=== PATIENT | male | born 1935 | race Two or more races ===

== ENCOUNTER 2016-06-06 19:30 | Emergency (ER) | payer MEDICARE, OTHER, MEDICAID ==
[2016-06-06 20:55] LABS: Hematocrit 37 % (42-52); Hemoglobin 12.2 g/dl (14.0-18.0); Mean Corpuscular HGB Conc 33 g/dl (31-36); Mean Corpuscular Hemoglobin 29 pg (27-31); Mean Corpuscular Volume 87 fL (80-94); Mean Platelet Volume 10 um3 (7.4-10.4); Red Blood Count 4.25 10^6/ul (4.0-5.4); Red Cell Distribution Width 14 % (10.5-15); White Blood Count 12.6 10^3/ul (3.5-10.8)
[2016-06-06 21:10] LABS: ALT 17 U/L (7-52); AST 12 U/L (13-39); Alkaline Phosphatase 57 U/L (34-104); Anion Gap 7 mmol/L (2-11); BUN/Creatinine Ratio 25.7 (8-20); Blood Urea Nitrogen 35 mg/dL (6-24); CO2 Carbon Dioxide 28 mmol/L (22-32); Calcium 9.5 mg/dL (8.6-10.3); Chloride 103 mmol/L (101-111); EGFR African American 65.2 (>60); EGFR Non-African American 50.7 (>60); Globulin 2.7 g/dL (2-4); Glucose 185 mg/dL (70-100); Potassium 4.6 mmol/L (3.5-5.0); Sodium 138 mmol/L (133-145); Total Protein 6.7 g/dL (6.4-8.9)
[2016-06-06 21:28] LABS: Alcohol < 10 mg/dL (<10); Salicylate < 2.50 mg/dL (<30)
[2016-06-06 21:38] LABS: TSH (Thyroid Stimulating Horm) 3.15 mcIU/mL (0.34-5.60)
[2016-06-07 03:27] LABS: Urine Bilirubin Negative (Negative); Urine Glucose Negative (Negative); Urine Nitrite Negative (Negative)
[2016-06-07 03:49] LABS: Benzodiazepine Urine Screen None Detected (None Detect)
[2016-06-07 05:32] VITALS: BP 141/61
--- NOTE | 2016-06-07 06:15 | ED ---
Enma Livingston Alok, scribed for AnilMontez on 06/06/16 at 2040 . Psychiatric Complaint - HPI Summary HPI Summary: 80 y/o male presents to the ED for mental evaluation after being caught fondling a fellow female resident at [facility]. Pt now states that "she wanted it ". Pt denies pain and appears alert and confused. Pt denies SI/HI. - History Of Current Complaint Chief Complaint: EDMentalHealth Time Seen by Provider: 06/06/16 19:58 Hx Obtained From: Patient Associated Signs And Symptoms: Positive: Confused Has Suicidal: Denies: Thoughts Has Homicidal: Denies: Thoughts - Allergies/Home Medications Allergies/Adverse Reactions: Allergies Allergy/AdvReac Type Severity Reaction Status Date / Time No Known Allergies Allergy Verified 04/16/15 08:27 PMH/Surg Hx/FS Hx/Imm Hx Endocrine/Hematology History: Reports: Hx Diabetes - DM II Denies: Hx Anticoagulant Therapy, Hx Blood Disorders, Hx Blood Transfusions, Hx Bone Marrow Disease, Hx Systemic Lupus Erythematosus, Hx Sickle Cell Disease , Hx Thyroid Disease, Hx Anemia, Hx Unexplained Bleeding, Other Endocrine/ Hematological Disorders Cardiovascular History: Reports: Hx Hypercholesterolemia, Hx Hypertension Denies: Hx Aneurysm, Hx Angina, Hx Angioplasty, Hx Auto Implanted Cardiovert Defib, Hx Cardiac Arrest, Hx Cardiomegaly, Hx Congenital Heart Disease, Hx Congestive Heart Failure, Hx Coronary Artery Disease, Hx Deep Vein Thrombosis, Hx Embolism, Hx Hypotension, Hx Pacemaker/ICD, Hx Peripheral Vascular Disease, Hx Rheumatic Fever, Hx Syncope, Hx Valvular Heart Disease, Other Cardiovascular Problems/Disorders Respiratory History: Reports: Hx Asthma Denies: Hx Chronic Bronchitis, Hx Chronic Obstructive Pulmonary Disease (COPD ), Hx Cystic Fibrosis, Hx Lung Cancer, Hx Pleural Effusion, Hx Pneumonia, Hx Pulmonary Edema, Hx Pulmonary Embolism, Hx Seasonal Allergies, Hx Sleep Apnea, Other Respiratory Problems/Disorders History: Reports: Hx Benign Prostatic Hyperplasia, Hx Chronic Renal Failure - Chronic renal insufficiency Denies: Hx Acute Renal Failure, Hx Dialysis, Hx Kidney Infection, Hx Kidney Stones, Hx Renal Disease, Other Problems/Disorders Sensory History: Reports: Other Sensory Impairments - Right eye closed, 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 Denies: Hx Cataracts, Hx Contacts or Glasses, Hx Eye Injury, Hx Glaucoma, Hx Legally Blind, Hx Macular Degeneration, Hx Vision Problem, Hx Deafness, Hx Hearing Aid, Hx Hearing Problem Opthamlomology History: Reports: Other Sensory Impairments - Right eye closed, 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 Denies: Hx Cataracts, Hx Contacts or Glasses, Hx Eye Injury, Hx Glaucoma, Hx Legally Blind, Hx Macular Degeneration, Hx Vision Problem Neurological History: Reports: Hx Dementia - possible, Hx Nerve Disease - bells palsey x2, Other Neuro Impairments/Disorders - hydrocephalus Denies: Hx Developmental Delay, Hx Headaches, Hx Migraine, Hx Seizures, Hx Spinal Cord Injury, Hx Transient Ischemic Attacks (TIA) Psychiatric History: Denies: Hx Panic Disorder - Surgical History Surgery Procedure, Year, and Place: CLEFT PALLETE Hx Anesthesia Reactions: No Infectious Disease History: Yes Infectious Disease History: Denies: Hx Tuberculosis, Traveled Outside the [place] in Last 30 Days - Family History Known Family History: Positive: Other - M - arthritis, dementia, F - of injuries from war - Social History Occupation: Retired Lives: At [facility] Alcohol Use: None Hx Substance Use: No Substance Use Type: Reports: None Hx Tobacco Use: Yes Smoking Status (MU): Former Smoker Type: Cigars Have You Smoked in the Last Year: No Review of Systems Negative: Fever Positive: Other - Confused All Other Systems Reviewed And Are Negative: Yes Physical Exam Triage Information Reviewed: Yes Vital Signs On Initial Exam: Initial Vitals Temp Pulse Resp BP Pulse Ox 99.3 F 72 20 161/48 95 06/06/16 19:41 06/06/16 19:41 06/06/16 19:41 06/06/16 19:41 06/06/16 19:41 Vital Signs Reviewed: Yes Appearance: Positive: Well-Appearing, No Pain Distress Skin: Positive: Warm, Skin Color Reflects Adequate Perfusion, Dry Head/Face: Positive: Normal Head/Face Inspection Eyes: Positive: EOMI, ALLA ENT: Positive: Normal ENT inspection Neck: Positive: Supple, Nontender Respiratory/Lung Sounds: Positive: Clear to Auscultation, Breath Sounds Present Cardiovascular: Positive: RRR, Pulses are Symmetrical in both Upper and Lower Extremities Abdomen Description: Positive: Nontender, Soft Bowel Sounds: Positive: Present Musculoskeletal: Positive: Normal, Strength/ROM Intact Neurological: Positive: Other - Alert and Confused Diagnostics - Vital Signs Vital Signs Temp Pulse Resp BP Pulse Ox 06/06/16 19:41 99.3 F 72 20 161/48 95 - Laboratory Result Diagrams: 06/06/16 20:46 06/06/16 20:46 Lab Statement: Any lab studies that have been ordered have been reviewed, and results considered in the medical decision making process. Course/Dx - Differential Dx/Clinical Impression Provider Diagnosis: Dementia Discharge - Discharge Plan Condition: Stable Disposition: HOME Patient Education Materials: Dementia (ED) Additional Instructions: Please Follow up with your primary care provider in the next 3 days The documentation as recorded by the Enma moody Alok accurately reflects the service I personally performed and the decisions made by Anil kate Emmanuel.
== END 2016-06-07 05:31 | disposition home or self-care (01) ==
LOC: ED 19:30
DX: F03.90 Unspecified dementia, unspecified severity, without behavioral disturbance, psychotic disturbance, mood disturbance, and anxiety (principal); R41.0 Disorientation, unspecified; Z87.891 Personal history of nicotine dependence
CPT/HCPCS: 36415; 80053; 80307; 80320; 80329; 81003; 84443; 85025; 99285; G0480

== ENCOUNTER 2017-09-14 00:45 | Emergency (ER) | payer MEDICARE, OTHER, MEDICAID ==
[2017-09-14 01:36] LABS: ABS Basophils 0.1 10^3/ul (0-0.2); ABS Eosinophils 0.2 10^3/ul (0-0.6); ABS Lymphocytes 1.4 10^3/ul (1.0-4.8); ABS Neutrophils 10.8 10^3/ul (1.5-7.7); ABS Nucleated RBC 0 10^3/ul; Eosinophil % 1.3 % (0-6); Hematocrit 33 % (42-52); Hemoglobin 10.8 g/dl (14.0-18.0); Lymphocyte % 10.2 % (25-47); Mean Corpuscular HGB Conc 32 g/dl (31-36); Mean Corpuscular Hemoglobin 28 pg (27-31); Mean Corpuscular Volume 87 fL (80-94); Mean Platelet Volume 9.5 um3 (7.4-10.4); Nucleated Red Blood Cells % 0; Platelet Count 286 10^3/ul (150-450); Red Blood Count 3.86 10^6/ul (4.00-5.40); Red Cell Distribution Width 14 % (10.5-15); White Blood Count 13.4 10^3/ul (3.5-10.8)
[2017-09-14 01:53] LABS: EGFR Non-African American 31.7 (>60)
--- NOTE | 2017-09-14 02:04 | ED ---
Complex/Multi-Sys Presentation - HPI Summary HPI Summary: This is scribe Bhaskar Payton documenting for attending Regino Johnson MD. LEVEL 5 CAVEAT: Patient not speaking. This patient is a 81 year old M BIBA to [facility] with a chief complaint of hypoglycemia since [employer]. [facility]. His blood sugar was 44 on the scene. An amp of D50 was administered and the blood sugar tim to 243. Patient recalls nothing. Patient denies abdominal pain. His family visited him this afternoon he didnt say anything. They thought he was taking a nap, which was not unusual. Per the family, the patient does not remember if he ate lunch or not, but he did eat dinner. Family observes that he is having unusually difficult time breathing and has an unusual cough. When they visited 4-5 days ago, he was responsive and talking normally. I, Dr. Johnson, personally performed the services described in this documentation as scribed in my presence and it is both accurate and complete. - History Of Current Complaint Time Seen by Provider: 09/14/17 00:56 Hx Obtained From: Family/Client Manager Hx From Patient Unobtainable Due To: Other - Patient not speaking. Onset/Duration: Sudden Onset, Resolved Timing: Constant Severity Currently: None Severity Initially: Mild Associated Signs And Symptoms: Positive: Decreased Responsiveness, Cough, Other - Unusually difficult time breathing. Negative: Abdominal Pain - Allergies/Home Medications Allergies/Adverse Reactions: Allergies Allergy/AdvReac Type Severity Reaction Status Date / Time No Known Allergies Allergy Verified 04/16/15 08:27 PMH/Surg Hx/FS Hx/Imm Hx Endocrine/Hematology History: Reports: Hx Diabetes - DM II Denies: Hx Anticoagulant Therapy, Hx Blood Disorders, Hx Blood Transfusions, Hx Bone Marrow Disease, Hx Systemic Lupus Erythematosus, Hx Sickle Cell Disease , Hx Thyroid Disease, Hx Anemia, Hx Unexplained Bleeding, Other Endocrine/ Hematological Disorders Cardiovascular History: Reports: Hx Hypercholesterolemia, Hx Hypertension Denies: Hx Aneurysm, Hx Angina, Hx Angioplasty, Hx Auto Implanted Cardiovert Defib, Hx Cardiac Arrest, Hx Cardiomegaly, Hx Congenital Heart Disease, Hx Congestive Heart Failure, Hx Coronary Artery Disease, Hx Deep Vein Thrombosis, Hx Embolism, Hx Hypotension, Hx Pacemaker/ICD, Hx Peripheral Vascular Disease, Hx Rheumatic Fever, Hx Syncope, Hx Valvular Heart Disease, Other Cardiovascular Problems/Disorders Respiratory History: Reports: Hx Asthma Denies: Hx Chronic Bronchitis, Hx Chronic Obstructive Pulmonary Disease (COPD ), Hx Cystic Fibrosis, Hx Lung Cancer, Hx Pleural Effusion, Hx Pneumonia, Hx Pulmonary Edema, Hx Pulmonary Embolism, Hx Seasonal Allergies, Hx Sleep Apnea, Other Respiratory Problems/Disorders History: Reports: Hx Benign Prostatic Hyperplasia, Hx Chronic Renal Failure - Chronic renal insufficiency Denies: Hx Acute Renal Failure, Hx Dialysis, Hx Kidney Infection, Hx Kidney Stones, Hx Renal Disease, Other Problems/Disorders Sensory History: Reports: Other Sensory Impairments - Right eye closed, 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 Denies: Hx Cataracts, Hx Contacts or Glasses, Hx Eye Injury, Hx Glaucoma, Hx Legally Blind, Hx Macular Degeneration, Hx Vision Problem, Hx Deafness, Hx Hearing Aid, Hx Hearing Problem Opthamlomology History: Reports: Other Sensory Impairments - Right eye closed, 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 Denies: Hx Cataracts, Hx Contacts or Glasses, Hx Eye Injury, Hx Glaucoma, Hx Legally Blind, Hx Macular Degeneration, Hx Vision Problem Neurological History: Reports: Hx Dementia - possible, Hx Nerve Disease - bells palsey x2, Other Neuro Impairments/Disorders - hydrocephalus Denies: Hx Developmental Delay, Hx Headaches, Hx Migraine, Hx Seizures, Hx Spinal Cord Injury, Hx Transient Ischemic Attacks (TIA) Psychiatric History: Denies: Hx Panic Disorder - Surgical History Surgery Procedure, Year, and Place: CLEFT PALLETE Hx Anesthesia Reactions: No Infectious Disease History: No Infectious Disease History: Denies: Hx Tuberculosis, Traveled Outside the in Last 30 Days - Family History Known Family History: Positive: Other - M - arthritis, dementia, F - of injuries from war - Social History Occupation: Retired Lives: At [facility] Alcohol Use: None Hx Substance Use: No Substance Use Type: Reports: None Hx Tobacco Use: Yes Smoking Status (MU): Former Smoker Type: Cigars Have You Smoked in the Last Year: No Review of Systems Negative: Abdominal Pain All Other Systems Reviewed And Are Negative: No Physical Exam - Summary Physical Exam Summary: Appearance: Appears chronically ill Skin: Warm, dry, no obvious rash Eyes: sclera anicteric, no conjunctival pallor ENT: mucous membranes moist, pharynx appears normal Neck: Supple, nontender Respiratory: Mild respiratory distress with some dyspnea. Cardiovascular: Normal S1, S2. No murmurs. Normal distal pulses in tibial and radial bilaterally. Abdomen: Soft, nontender, normal active bowel sounds present Musculoskeletal: Normal, Strength/ROM Intact Neurological: A&Ox3, awake and alert, mentation is normal, speech is fluent and appropriate Psychiatric: affect is normal, does not appear anxious or depressed Triage Information Reviewed: Yes Vital Signs On Initial Exam: Initial Vitals Pulse Pulse Ox 74 97 09/14/17 00:53 09/14/17 00:53 Vital Signs Reviewed: Yes Diagnostics - Vital Signs Vital Signs Temp Pulse Resp BP Pulse Ox 09/14/17 01:00 97.9 F 75 20 134/85 97 09/14/17 00:56 73 19 134/85 96 09/14/17 00:53 74 97 - Laboratory Lab Results: Lab Results 09/14/17 09/14/17 09/14/17 Range/Units 01:23 01:23 01:23 WBC 13.4 H (3.5-10.8) 10^3/ul RBC 3.86 L (4.00-5.40) 10^6/ul Hgb 10.8 L (14.0-18.0) g/dl Hct 33 L (42-52) % MCV 87 (80-94) fL MCH 28 (27-31) pg MCHC 32 (31-36) g/dl RDW 14 (10.5-15) % Plt Count 286 (150-450) 10^3/ul MPV 9.5 (7.4-10.4) um3 Neut % (Auto) 80.3 (38-83) % Lymph % (Auto) 10.2 L (25-47) % [place] % (Auto) 7.4 H (0-7) % Eos % (Auto) 1.3 (0-6) % Baso % (Auto) 0.8 (0-2) % Absolute Neuts (auto) 10.8 H (1.5-7.7) 10^3/ul Absolute Lymphs (auto) 1.4 (1.0-4.8) 10^3/ul Absolute Monos (auto) 1.0 H (0-0.8) 10^3/ul Absolute Eos (auto) 0.2 (0-0.6) 10^3/ul Absolute Basos (auto) 0.1 (0-0.2) 10^3/ul Absolute Nucleated RBC 0 10^3/ul Nucleated RBC % 0 Sodium 139 (135-145) mmol/L Potassium 4.4 (3.5-5.0) mmol/L Chloride 103 (101-111) mmol/L Carbon Dioxide 28 (22-32) mmol/L Anion Gap 8 (2-11) mmol/L BUN 36 H (6-24) mg/dL Creatinine 2.04 H (0.67-1.17) mg/dL Est GFR ( Amer) 38.3 (>60) Est GFR (Non-Af Amer) 31.7 (>60) BUN/Creatinine Ratio 17.6 (8-20) Glucose 105 H (70-100) mg/dL Lactic Acid 1.2 (0.5-2.0) mmol/L Calcium 9.5 (8.6-10.3) mg/dL Result Diagrams: 09/14/17 01:23 09/14/17 01:23 Lab Statement: Any lab studies that have been ordered have been reviewed, and results considered in the medical decision making process. - Radiology Chest X-Ray Radiology Interpretation Completed By: ED Physician - No acute disease. Pending official report. Re-Evaluation - Re-Evaluation 1 Re-Evaluation Time: 03:10 Change: Improved Comment: His breathign is better and his blood sugar is stable. Patient feels better. Complex Multi-Symp Course/Dx Course Of Treatment: This is a 81-year-old man who is DNR/DNH, brought into the emergency department after experiencing a hypoglycemic episode. He initially had some tachypnea times concerned he may have aspirated. He was observed and his tachypnea resolved and he appears comfortable now. His chest x-ray does not show any definite infiltrates. His blood sugar has stabilized. I believe he can be safely returned to the nursing facility. - Diagnoses Differential Diagnoses/HQI/PQRI: Aspiration, Metabolic Abnormality, Sepsis, Other - Pneumonia Provider Diagnoses: Hypoglycemia Discharge - Sign-Out/Discharge Documenting (check all that apply): Patient Departure - Discharge Plan Condition: Good Disposition: HOME Patient Education Materials: Hypoglycemia in a Person with Diabetes (ED) Referrals: Heladio Hernandez MD [Primary Care Provider] - - Billing Disposition and Condition Condition: GOOD Disposition: Home
[2017-09-14 02:42] LABS: Urine Appearance Cloudy; Urine Blood Negative (Negative); Urine Color Yellow; Urine Ketones Negative (Negative); Urine Protein 1+(30 mg/dL) (Negative); Urine Red Blood Cell Absent (Absent); Urine Specific Gravity 1.014 (1.010-1.030); Urine Urobilinogen Negative (Negative); Urine White Blood Cell 3+(>20/hpf) (Absent)
[2017-09-14 03:36] VITALS: BP 147/81
--- NOTE | 2017-09-14 08:10 | RAD ---
Indication: Cough, dyspnea. 2 views of the chest are reviewed. The AP study is in a lordotic position. There is cardiomegaly. Lung chatman are clear. No alveolar consolidation is noted. IMPRESSION: Cardiomegaly. No definite pneumonia is identified. R0
--- NOTE | 2017-09-16 07:18 | ED ---
Progress - Progress Note Progress Note: Patient's preliminary urine culture reveals greater than 100,000 Alcaligenes species and 75-100,000 Serratia Marcescens. Final culture/sens pending. Re-Evaluation - Re-Evaluation 1 Re-Evaluation Time: 03:10 Change: Improved Comment: His breathign is better and his blood sugar is stable. Patient feels better. Course/Dx - Course Course Of Treatment: This is a 81-year-old man who is DNR/DNH, brought into the emergency department after experiencing a hypoglycemic episode. He initially had some tachypnea times concerned he may have aspirated. He was observed and his tachypnea resolved and he appears comfortable now. His chest x-ray does not show any definite infiltrates. His blood sugar has stabilized. I believe he can be safely returned to the nursing facility. - Diagnoses Provider Diagnoses: Hypoglycemia Discharge - Sign-Out/Discharge Documenting (check all that apply): Post-Discharge Follow Up - Discharge Plan Condition: Good Disposition: HOME Patient Education Materials: Hypoglycemia in a Person with Diabetes (ED) Referrals: Heladio Hernandez MD [Primary Care Provider] - - Billing Disposition and Condition Condition: GOOD Disposition: Home
--- NOTE | 2017-09-17 17:27 | PN ---
Progress Note - Progress Note Date of Service: 09/14/17 Note: Pt. seen in ER 09/14 for hypoglycemia. Urine culture obtained at that time. Culture today is growing >100,000 alcaligenes and 75-100K serratia marcescens. Pt. resides at [facility]. I called and spoke with nursing hotel services supervisor at retirement and culture was faxed over. Nurse will relay culture to attending.
== END 2017-09-14 03:20 | disposition home or self-care (01) ==
LOC: ED 00:45
DX: E11.649 Type 2 diabetes mellitus with hypoglycemia without coma (principal); R06.82 Tachypnea, not elsewhere classified; Z66 Do not resuscitate; Z87.891 Personal history of nicotine dependence
CPT/HCPCS: 36415; 71046; 80048; 81003; 81015; 83605; 85025; 87077; 87086; 87186; 99284